=== PATIENT | female | born 1960 | race Caucasian/White ===

== ENCOUNTER 2017-08-06 14:58 | Emergency (ER) | payer BC, MEDICAID ==
[~2017-08-06] VITALS: Ht 162.6 cm; Wt 98.6 kg
[2017-08-06] MEDS ORDERED: HYDROmorphone 1 MG/ML, 1ML ONE ×2 (15:43→18:29)
[2017-08-06] MEDS ORDERED: ONDANSETRON ODT 4 MG ONE (15:43)
[2017-08-06] MEDS ORDERED: ONDANSETRON ODT 4 MG PO ONE (16:00)
[2017-08-06] MEDS ORDERED: HYDROmorphone 1 MG/ML, 1ML IV ONE (16:00)
[2017-08-06] MEDS ORDERED: ONDANSETRON 2MG/ML, 2ML ONE (16:09)
[2017-08-06 16:15] VITALS: BP 153/79
[2017-08-06] MEDS ORDERED: SODIUM CHLORIDE FLUSH 10ML SYR IVF ONE (16:30)
[2017-08-06] MEDS ORDERED: ONDANSETRON 2MG/ML, 2ML IVPush ONE (16:30)
[2017-08-06] MEDS ORDERED: LIDOCAINE-MPF 2% ,5ML ONE ×2 (16:57)
[2017-08-06] MEDS ORDERED: ETOMIDATE 20 MG/10 ML ONE ×2 (17:01→17:12)
[2017-08-06] MEDS ORDERED: ETOMIDATE 20 MG/10 ML IVPush ONE (17:30)
[2017-08-06] MEDS ORDERED: HYDROmorphone 1 MG/ML, 1ML IM ONE (18:00)
== END 2017-08-06 18:27 ==
LOC: ED 16:59
DX: S43.015A Anterior dislocation of left humerus, initial encounter (principal); G89.29 Other chronic pain; F17.210 Nicotine dependence, cigarettes, uncomplicated; W18.30XA Fall on same level, unspecified, initial encounter; Y93.89 Activity, other specified; Y92.89 Other specified places as the place of occurrence of the external cause; Y99.8 Other external cause status
CPT/HCPCS: 23665; 73030; 96374; 96375; 99152; 99153; 99285; J1170; J2405

== ENCOUNTER 2017-11-12 16:37 | Emergency (ER) | payer BC, MEDICAID ==
[2017-11-12 17:28] VITALS: BP 131/78
[2017-11-12 17:51] LABS: BASOPHILS # (AUTO) 0.03 x10^3/uL (0-0.1); BASOPHILS % (AUTO) 0 % (0-1); EOSINOPHILS # (AUTO) 0.08 x10^3/uL (0-0.4); EOSINOPHILS % (AUTO) 1 % (1-7); LYMPHOCYTES % (AUTO) 22 % (22-44); MD NO; MEAN CORPUSCULAR HGB CONC 33.7 g/dL (32.4-35.8); MEAN CORPUSCULAR VOLUME 94.8 fL (80-100); MEAN PLATELET VOLUME 7.9 fL (7.4-10.4); MONOCYTES # (AUTO) 0.48 x10^3/uL (0.2-0.8); MONOCYTES % (AUTO) 6 % (2-9); NEUTROPHILS # (AUTO) 5.54 x10^3/uL (1.8-6.8); NEUTROPHILS % (AUTO) 71 % (42-75); PLATELET COUNT 175 x10^3/uL (130-400); RED BLOOD COUNT 5.16 x10^6/uL (3.82-5.3); RED CELL DISTRIBUTION WIDTH 14.5 % (9.6-15.2)
[2017-11-12 18:03] LABS: ALBUMIN 3.8 g/dL (3.4-5.0); ANION GAP 7 mmol/L (5-15); CALCIUM 9.4 mg/dL (8.5-10.1); CHLORIDE 106 mmol/L (98-107); CREATININE 0.98 mg/dL (0.55-1.02)
[2017-11-12 18:13] LABS: THYROID STIMULATING HORMONE 0.908 mIU/L (0.358-3.740)
== END 2017-11-12 19:22 | disposition home or self-care (01) ==
LOC: ED 19:15
DX: H53.9 Unspecified visual disturbance (principal); R20.0 Anesthesia of skin; G89.29 Other chronic pain
CPT/HCPCS: 36415; 70450; 80048; 82040; 83735; 84443; 85025; 93005; 99285